=== PATIENT | female | born 1960 | race Caucasian/White ===

== ENCOUNTER 2016-11-17 21:11 | Emergency (ER) | payer OTHER ==
[2016-11-17 21:28] VITALS: BP 109/64; PULSE 57; RESP 16; TEMP 98; O2SAT 100
--- NOTE | 2016-11-17 22:01 | ED PDOC ---
HPI: Eye Injury/Pain Time Seen by Provider: 11/17/16 21:39 Chief Complaint (Nursing): Eye Problem Chief Complaint (Provider): Left eye drainage, swelling History Per: Patient History/Exam Limitations: no limitations Onset/Duration Of Symptoms: Days (2 weeks ) Injury To Eye?: No Additional Complaint(s): PT was seen by eye doctor 3 days ago and given amoxicillin and poly trim. Pt states she has taken it for 2.5 days but there is no improvement. No change in vision. Past Medical History Reviewed: Historical Data, Nursing Documentation, Vital Signs Vital Signs: Last Vital Signs Temp 98 F 11/17/16 21:25 Pulse 57 L 11/17/16 21:25 Resp 16 11/17/16 21:25 BP 109/64 11/17/16 21:25 Pulse Ox 100 11/17/16 21:25 - Medical History PMH: No Chronic Diseases - Surgical History Surgical History: No Surg Hx - Family History Family History: States: No Known Family Hx - Living Arrangements Living Arrangements: With Family - Social History Current smoker - smoking cessation education provided: No Alcohol: None Drugs: Denies - Allergies Allergies/Adverse Reactions: Allergies Allergy/AdvReac Type Severity Reaction Status Date / Time No Known Allergies Allergy Verified 11/17/16 21:27 Review of Systems ROS Statement: Except As Marked, All Systems Reviewed And Found Negative Constitutional: Negative for: Fever, Chills Eyes: Positive for: Pain (Irritation), Redness, Other (Drainage ) Respiratory: Negative for: Shortness of Breath Physical Exam - Reviewed Nursing Documentation Reviewed: Yes Vital Signs Reviewed: Yes - Physical Exam Appears: Positive for: Well, Non-toxic, No Acute Distress Head Exam: Positive for: ATRAUMATIC, NORMAL INSPECTION, NORMOCEPHALIC Skin: Positive for: Normal Color, Warm, DRY Eye Exam: Positive for: Normal appearance, EOMI, PERRL, Other ((+) sty upper left eye lid, (+) drainage, (+) erythema of the conjunctiva and sclera, (-) abrasion ) ENT: Positive for: Normal ENT Inspection Neck: Positive for: Normal, Painless ROM Respiratory: Negative for: Accessory Muscle Use, Respiratory Distress Back: Positive for: Normal Inspection Extremity: Positive for: Normal ROM Neurologic/Psych: Positive for: Alert, Oriented - ECG O2 Sat by Pulse Oximetry: 100 Disposition - Clinical Impression Clinical Impression: Conjunctivitis, Sty - Patient ED Disposition Is Patient to be Admitted: No Counseled Patient/Family Regarding: Diagnosis, Need For Followup - Disposition Disposition: Routine/Home Disposition Time: 22:00 Condition: GOOD Additional Instructions: Culture pending. Instructions: Stye (ED), Conjunctivitis (ED) Print Language: ESTONIAN
== END 2016-11-17 22:13 | disposition home or self-care (01) ==
LOC: H.ER 21:11
DX: H10.9 Unspecified conjunctivitis (principal)